=== PATIENT | female | born 1970 | race Caucasian/White ===

== ENCOUNTER 2023-10-08 17:06 | Emergency (ER) | payer OTHER, SELFPAY ==
[2023-10-08 17:17] VITALS: BP 171/110
[2023-10-08 18:23] VITALS: BP 155/97
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
== END 2023-10-08 18:24 | disposition home or self-care (01) ==
LOC: EMR 17:06
PROVIDERS: EMERGENCY PHYSICIAN Emergency Medicine; FAMILY PHYSICIAN Internal Medicine
DX: S63.601A Unspecified sprain of right thumb, initial encounter (principal); S60.011A Contusion of right thumb without damage to nail, initial encounter; S10.91XA Abrasion of unspecified part of neck, initial encounter; V43.52XA Car driver injured in collision with other type car in traffic accident, initial encounter; Y92.410 Unspecified street and highway as the place of occurrence of the external cause; F32.A Depression, unspecified
CPT/HCPCS: 99283; 29125; 73110; 73140